=== PATIENT | female | born 1960 | race Caucasian/White ===

== ENCOUNTER 2024-02-29 04:00 | Emergency (ER) | payer OTHER ==
[2024-02-29 04:16] VITALS: BP 121/73; PULSE 84; RESP 18; TEMP 98.8; BMI 21.4
[2024-02-29] MEDS ORDERED: METOCLOPRAMIDE HCL INJECTION 10 MG/2 ML VIAL ONE (04:53)
[2024-02-29] MEDS ORDERED: ACETAMINOPHEN INJECTION 100 ML IVPB ONE (04:53)
[2024-02-29] MEDS: SODIUM CHLORIDE 0.9% 500 ML INFUS.BAG IV ONE (05:10)
[2024-02-29] MEDS: ACETAMINOPHEN 1000 MG/100 ML BAG IVPB ONE (05:11)
[2024-02-29] MEDS: METOCLOPRAMIDE HCL INJECTION 10 MG/2 ML VIAL IVPB ONE (05:11)
[2024-02-29 05:47] LABS: BASO % 0.2 % (0-2.0); EOS % 0.3 % (0-4.5); HEMATOCRIT 41.2 % (32.4-45.2); HEMOGLOBIN 13.5 GM/dL (10.7-15.3); LYMPH % 10.7 % (8-40); MCH 30.9 pg (25.7-33.7); MCHC 32.8 g/dl (32.0-36.0); MEAN CELL VOLUME 94.3 fl (80-96); MEAN PLT VOLUME 11.6 fl (7.5-11.1); MONO % 6.1 % (3.8-10.2); NEUT % 82.7 % (42.8-82.8); PLATELET COUNT 165 10^3/uL (134-434); RBC 4.37 M/mm3 (3.60-5.2); RDW 12.7 % (11.6-15.6); URINE APPEARANCE CLOUDY; URINE BILIRUBIN NEGATIVE (NEGATIVE); URINE COLOR YELLOW; URINE GLUCOSE (UA) NEGATIVE (NEGATIVE); URINE KETONE 2+ (NEGATIVE); URINE LEUK ESTERASE NEGATIVE (NEGATIVE); URINE NITRITE NEGATIVE (NEGATIVE); URINE PROTEIN TRACE (NEGATIVE); URINE UROBILINOGEN 0.2 mg/dL (0.2-1.0); WHITE BLOOD COUNT 14.3 K/mm3 (4.0-10.0)
[2024-02-29 06:20] LABS: CALCIUM 10.8 mg/dL (8.5-10.1)
[2024-02-29 06:21] LABS: ALBUMIN 4.4 g/dl (3.4-5.0); BLOOD UREA NITROGEN 18.8 mg/dL (7-18)
[2024-02-29 06:23] LABS: CREATININE 0.7 mg/dL (0.55-1.3)
[2024-02-29 06:25] LABS: BILIRUBIN,TOTAL 0.6 mg/dL (0.2-1); TOT PROT 7.8 g/dl (6.4-8.2)
[2024-02-29 06:58] LABS: POTASSIUM 4.1 mmol/L (3.5-5.1)
== END 2024-02-29 07:50 | disposition home or self-care (01) ==
LOC: JER 04:00
PROC: 3E033NZ Introduction of Analgesics, Hypnotics, Sedatives into Peripheral Vein, Percutaneous Approach (ICD-10-PCS; principal; 2024-02-29)
PROC: 3E033GC Introduction of Other Therapeutic Substance into Peripheral Vein, Percutaneous Approach (ICD-10-PCS; 2024-02-29)
DX: R11.2 Nausea with vomiting, unspecified (principal); R42 Dizziness and giddiness
CPT/HCPCS: 36415; 70450-TC; 71045-TC-FY; 80053; 81003; 83690; 84484; 85025; 87086; 93005; 93010; 99285-25; J0131

== ENCOUNTER 2024-05-18 02:49 | Emergency (ER) | payer OTHER ==
[2024-05-18 03:13] VITALS: RESP 15; BMI 20.1
[2024-05-18 04:25] LABS: BASO % 0.1 % (0-2.0); EOS % 0.1 % (0-4.5); HEMATOCRIT 34.9 % (32.4-45.2); HEMOGLOBIN 11.9 GM/dL (10.7-15.3); LYMPH % 9.3 % (8-40); MCH 31.8 pg (25.7-33.7); MCHC 34.2 g/dl (32.0-36.0); MEAN PLT VOLUME 11.9 fl (7.5-11.1); MONO % 6.4 % (3.8-10.2); NEUT % 84.1 % (42.8-82.8); PLATELET COUNT 142 10^3/uL (134-434); RBC 3.75 M/mm3 (3.60-5.2); RDW 12.6 % (11.6-15.6); WHITE BLOOD COUNT 10.1 K/mm3 (4.0-10.0)
[2024-05-18] MEDS ORDERED: ONDANSETRON 4 MG/2 ML VIAL ONE (04:28)
[2024-05-18] MEDS: SODIUM CHLORIDE 0.9% 500 ML INFUS.BAG IV ONE (04:34)
[2024-05-18] MEDS: ONDANSETRON 4 MG/2 ML VIAL IVPUSH ONE (04:34)
[2024-05-18 04:44] LABS: POTASSIUM 3.7 mmol/L (3.5-5.1)
[2024-05-18 04:45] LABS: ALBUMIN 3.6 g/dl (3.4-5.0); CALCIUM 8.3 mg/dL (8.5-10.1)
[2024-05-18 04:46] LABS: BLOOD UREA NITROGEN 11.6 mg/dL (7-18); MAGNESIUM 1.7 mg/dL (1.8-2.4)
[2024-05-18 04:48] LABS: CREATININE 0.6 mg/dL (0.55-1.3)
[2024-05-18 04:50] LABS: BILIRUBIN,TOTAL 0.3 mg/dL (0.2-1); TOT PROT 6.6 g/dl (6.4-8.2)
[2024-05-18] MEDS ORDERED: MAGNESIUM 1GM/D5W - 1 GM/100 ML IVPB IVPB ONE (05:21)
[2024-05-18] MEDS: MAGNESIUM SULF 50% (8.12 MEQ/2 ML-1 GM VIAL) IVPB ONE (05:34)
[2024-05-18 05:52] LABS: EPI CELLS 14 /uL (0-25.1); HYALINE CASTS 1 /uL (0-3.1); URINE APPEARANCE TURBID; URINE BACTERIA 41 /uL (0-1359); URINE BILIRUBIN NEGATIVE (NEGATIVE); URINE COLOR YELLOW; URINE GLUCOSE (UA) NEGATIVE (NEGATIVE); URINE KETONE 1+ (NEGATIVE); URINE LEUK ESTERASE 2+ (NEGATIVE); URINE NITRITE NEGATIVE (NEGATIVE); URINE PROTEIN NEGATIVE (NEGATIVE); URINE RBC 37 /uL (0-23.9); URINE UROBILINOGEN 0.2 mg/dL (0.2-1.0); URINE WBC 158 /uL (0-25.8)
[2024-05-18 06:40] VITALS: BP 118/69; PULSE 67; TEMP 98.3
== END 2024-05-18 07:03 | disposition home or self-care (01) ==
LOC: JER 02:49
PROC: 3E033GC Introduction of Other Therapeutic Substance into Peripheral Vein, Percutaneous Approach (ICD-10-PCS; principal; 2024-05-18)
PROC: 3E033GC Introduction of Other Therapeutic Substance into Peripheral Vein, Percutaneous Approach (ICD-10-PCS; 2024-05-18)
DX: R55 Syncope and collapse (principal); R42 Dizziness and giddiness; U07.1 COVID-19
CPT/HCPCS: 0241U-QW; 36415; 71045-TC-FY; 80053; 81003; 82962; 83735; 84443; 84484; 85025; 87086; 93005; 93010; 99285-25